=== PATIENT | female | born 1985 | race Hispanic/Latino ===

== ENCOUNTER 2024-08-31 17:02 | Emergency (ER) | payer BC, MEDICAID ==
[~2024-08-31] VITALS: Ht 165.1 cm; Wt 95.3 kg
--- NOTE | 2024-08-31 17:16 | ERN ---
General Chief Complaint: Hyperglycemia Stated Complaint: HIGH BLOOD SUGAR LEVEL 415 Time Seen by MD: 17:04 Source: patient History of Present Illness Initial Comments PATIENT IS A 39-YEAR-OLD FEMALE COMING IN TO BE EVALUATED FOR ELEVATED GLUCOSE. PER PATIENT SHE WAS FEELING WEAK AND PRESENTED WITH A HEADACHE EARLIER TODAY. SHE STATES HE GRABBED HER MOTHER'S GLUCOMETER CHECKED HER GLUCOSE IT WAS IN THE 400. SHE HAS NEVER BEEN DIAGNOSED WITH DIABETES IN HIS HERE FOR FURTHER EVALUATION. Allergies: Coded Allergies: No Known Allergies (Unverified Allergy, Unknown, 06/27/16) Home Meds No Active Prescriptions or Reported Meds Past Medical History Past Medical History: No Pertinent History Past Surgical History: None ROS Dictation CONSTITUTIONAL: NO CHILLS, NO FEVER, WEAKNESS, NO DIAPHORESIS, NO MALAISE. HEAD/FACE: NO SIGNS OF TRAUMA. EENT: NO EYE PAIN, NO BLURRED VISION, NO TEARING, NO DOUBLE VISION, NO EAR PAIN, NO EAR DISCHARGE, NO NOSE PAIN, NO NASAL CONGESTION, NO THROAT PAIN, NO THROAT SWELLING, NO MOUTH PAIN. RESPIRATORY: NO COUGH, NO ORTHOPNEA, NO SOB, NO STRIDOR, NO WHEEZING. CARDIOVASCULAR: NO CHEST PAIN, NO EDEMA, NO PALPITATIONS, NO SYNCOPE. GASTROINTESTINAL/ABDOMINAL: NO ABDOMINAL PAIN, NO CONSTIPATION, NO DIARRHEA, NO NAUSEA, NO VOMITING. GENITOURINARY: NO ABNORMAL DISCHARGE, NO DYSURIA, NO FREQUENT URINATION, NO HEMATURIA. NO COMPLAINTS OF PAIN IN THE GENITALS. MUSCULOSKELETAL: NO BACK PAIN, NO GOUT, NO JOINT PAIN, NO JOINT SWELLING, NO MUSCLE PAIN, NO MUSCLE STIFFNESS, NO NECK PAIN. INTEGUMENTARY: NO CHANGE IN COLOR, NO CHANGE IN HAIR/NAILS, NO DRYNESS, NO LESION, NO LUMPS, NO RASH. NEUROLOGICAL/PSYCH: NO ANXIETY, NOT DEPRESSED, NO EMOTIONAL PROBLEM, NO HEADACHE, NO NUMBNESS, NO PRE-EXISTING DEFICIT, NO HISTORY OF SEIZURES, NO TREMORS, NO WEAKNESS. HEMATOLOGIC/LYMPHATIC: NOT ANEMIC, NO HISTORY OF BLOOD CLOTS, NO APPARENT BLEEDING, NO BRUISING, GLANDS NOT SWOLLEN. ALL SYSTEMS NEGATIVE, EXCEPT NOTED. Results Laboratory and Microbiology Lab and Micro Result Laboratory Tests Test 08/31/24 17:47 08/31/24 17:55 Urine Color LIGHT-YELLOW (YELLOW) Urine Appearance CLEAR (CLEAR) Urine pH 5.5 (5.0-8.0) Urine Specific [place] 1.048 (1.001-1.031) Urine Protein 10 mg/dL (NEGATIVE) H Urine Glucose (UA) >=1000 mg/dL (NEGATIVE) H Urine Ketones 20 mg/dL (NEGATIVE) H Urine Occult Blood +- (TRACE) (NEGATIVE) H Urine Nitrate 2+ (NEGATIVE) H Urine Bilirubin NEGATIVE mg/dL (NEGATIVE) Urine Urobilinogen 0.2 mg/dL (0.2-1.0) Urine Leukocyte Esterase 250 Peyton/uL (NEGATIVE) H Urine RBC 11-25 /HPF (0-1) H Urine WBC 26-50 /HPF (0-1) H Urine Squamous Epithelial Cells MANY /HPF (0-2) Urine Bacteria RARE /HPF (None Seen) Urine Yeast RARE /HPF (None Seen) White Blood Count 6.5 K/uL (4.8-10.8) Red Blood Count 4.97 MIL/uL (4.00-5.50) Hemoglobin 13.8 g/dL (12.0-16.0) Hematocrit 40.5 % (36-48) Mean Corpuscular Volume 81.5 fL (79-99) Mean Corpuscular Hemoglobin 27.8 pg (27.0-33.0) Mean Corpuscular Hemoglobin Concent 34.1 g/dL (32.0-36.0) Red Cell Distribution Width 14.4 % (11.0-15.5) Platelet Count 337 K/uL (130-400) Mean Platelet Volume 10.6 fL (7.5-10.5) H Immature Granulocyte % (Auto) 0.5 % (0-1) Neutrophils (%) (Auto) 57.9 % (40.0-77.0) Lymphocytes (%) (Auto) 31.5 % (21.0-51.0) Monocytes (%) (Auto) 7.5 % (3.0-13.0) Eosinophils (%) (Auto) 1.8 % (0.0-8.0) Basophils (%) (Auto) 0.8 % (0.0-5.0) Neutrophils # (Auto) 3.8 K/uL (1.8-7.7) Lymphocytes # (Auto) 2.1 K/uL (1.0-4.8) Monocytes # (Auto) 0.5 K/uL (0.1-1.0) Eosinophils # (Auto) 0.12 K/uL (0.00-0.70) Basophils # (Auto) 0.05 K/uL (0.00-0.20) Absolute Immature Granulocyte (auto 0.03 K/uL (0-1) Nucleated Red Blood Cells 0.0 % (0.0-0.19) Sodium Level 134 mmol/L (136-145) L Potassium Level 3.4 mmol/L (3.5-5.1) L Chloride Level 96 mmol/L (101-111) L Carbon Dioxide Level 28 mmol/L (21-32) Blood Urea Nitrogen 7 mg/dL (7-18) Creatinine 0.6 mg/dL (0.5-1.0) Glomerular Filtration Rate Calc 116 mL/min (>90) Random Glucose 399 mg/dL (70-105) H Total Calcium 9.3 mg/dL (8.5-10.1) Labs Reviewed?: Yes MDM MDM: DIFFERENTIAL DIAGNOSIS: DIABETES MELLITUS HYPERGLYCEMIA, UTI, NONCOMPLIANCE, RATIONALE: TESTS CONSIDERED AND ORDERED SECONDARY TO SHARED DECISION MAKING INCLUDE: PREVIOUS OUTSIDE RECORDS REVIEWED: OLD ER VISITS. RISK OF COMPLICATION AND/OR MORBIDITY OR MORTALITY OF PATIENT MANAGEMENT: NONE MEDICATIONS-PER MEDICATION RECONCILIATION NEED FOR HOSPITALIZATION: PATIENT DOES NOT MEET CRITERIA FOR HOSPITALIZATION. PATIENT IS A 39-YEAR-OLD FEMALE COMING IN TO BE EVALUATED AFTER SHE STATES HE CHECKED HIS BLOOD GLUCOSE AND IT WAS HIGH. SHE PATIENT HAS NOT BEEN DIAGNOSED WITH DIABETES BUT HAS NOT FOLLOWED UP WITH THE PCP IN SOME TIME. LABORATORY WORKUP DID DISCLOSE ELEVATED GLUCOSE WELL A URINARY TRACT INFECTION. PATIENT WAS HYDRATED WITH IV FLUIDS INSULIN WAS GIVEN. ANTIBIOTICS WERE ALSO GIVEN FOR THE URINARY TRACT INFECTION. PATIENT WILL BE DISCHARGED WITH ORAL AN TI GLYCEMIC ACHES WELL ANTIBIOTICS. I DID ADVISED HER APPROPRIATE FOLLOW UP WITH PCP FOR LONG-TERM MANAGEMENT OF DIABETES MELLITUS. ED Course Orders Procedure Category Date Status Time Cbc With Differential LAB 08/31/24 Complete 17:08 Basic Metabolic Panel LAB 08/31/24 Complete 17:08 Urinalysis LAB 08/31/24 Complete W/Microscopic 17:08 12 Lead Ekg Tracing- EKG 08/31/24 Resulted Technical 17:08 0.9%Nacl 1000ml (Ns PHA 08/31/24 Complete 1000ml) 17:30 Culture Urine MAIRA 08/31/24 In Process 18:17 0.9%Nacl 1000ml (Ns PHA 08/31/24 Complete 1000ml) 18:30 Ceftriaxone 1g Vial PHA 08/31/24 Complete (Rocephine 1g Inj) 18:30 Potassium Bicarb/Cit PHA 08/31/24 Complete Ac 25meq (K-Lyte Ta 18:30 Insulin Regular, PHA 08/31/24 Complete Human 3ml (Humulin R 18:30 Current Medications Medications (Trade) Dose Ordered Sig/Diana Route PRN Reason Start Time Stop Time Status Last Admin Dose Admin Ceftriaxone Sodium (ROCEphine 1G INJ) 1 gm ONCE ONCE IVPB 08/31/24 18:30 08/31/24 18:31 DC 08/31/24 18:31 Insulin Human Regular (humuLIN R 100 UNIT/ML 3ML) 5 unit ONCE ONCE IV 08/31/24 18:30 08/31/24 18:31 DC 08/31/24 18:33 Potassium Bicarbonate (K-Lyte Tablet Eff 25 Meq Tablet.eff) 50 meq ONCE ONCE PO 08/31/24 18:30 08/31/24 18:31 DC 08/31/24 18:31 Sodium Chloride 1,000 ml @ 0 mls/hr ONCE ONCE IV 08/31/24 17:30 08/31/24 17:31 DC 08/31/24 17:59 Sodium Chloride 1,000 ml @ 0 mls/hr ONCE ONCE IV 08/31/24 18:30 08/31/24 18:31 DC 08/31/24 18:31 Vital Signs Date Time Temp Pulse Resp B/P (MAP) Pulse Ox O2 Delivery O2 Flow Rate FiO2 08/31/24 17:55 98.2 88 16 170/96 98 Room Air* 0 21 08/31/24 17:09 98.2 88 20 172/101 99 Room Air DX & DISP Disposition: Discharge Departure Impression: Primary Impression: UTI (urinary tract infection) Additional Impression: Diabetes mellitus with hyperglycemia Condition: Stable Scripts Cephalexin Monohydrate (Keflex) 500 Mg Cap 1 CAP PO TID for 10 Days, #30 CAP 0 Refills Prov: LUIS MANUEL WANG MD 08/31/24 Metformin HCl (Metformin HCl ER) 1,000 Mg [id number] 1 TAB PO BID for diabetes for 30 Days, #60 TAB 0 Refills Prov: LUIS MANUEL WANG MD 08/31/24 Additional Instructions: FOLLOW-UP WITH PRIMARY CARE PROVIDER IN 1 TO 2 DAYS. TAKE MEDICATIONS DIRECTED HERE IN THE EMERGENCY ROOM. OKAY TO CONTINUE HOME MEDICATIONS UNLESS OTHERWISE DISCUSSED DURING YOUR VISIT IN THE EMERGENCY ROOM TODAY. RETURN TO YOUR NEAREST EMERGENCY ROOM IF SYMPTOMS WORSEN OR IF THERE IS NO IMPROVEMENT. CALL 911 IF YOU NEED IMMEDIATE ASSISTANCE. TAKE TYLENOL [id number] NEEDED AND IF NO CONTRAINDICATIONS ARE PRESENT. INCREASE ORAL HYDRATION. A WOUND CULTURE OR URINE CULTURE WAS ORDERED HERE IN THE EMERGENCY ROOM DEPARTMENT PLEASE FOLLOW-UP WITH PRIMARY CARE PROVIDER AND ADVISE THEM TO GET REPORTS FROM OUR FACILITY. IF YOU HAD ANY AIDEE WRAP/SPLINTS THAT WERE APPLIED HERE, PLEASE DO NOT REMOVE THEM UNTIL YOU SEE YOUR PRIMARY CARE OR SPECIALTY. REFERRALS: Referrals: MILTON SHAH MD (PCP) DARYN ARORA MD Time of Disposition: 18:37 LUIS MANUEL WANG MD Aug 31, 2024 17:16
--- NOTE | 2024-08-31 17:19 | EKG ---
[facility] Test Date: 2024-08-31 Test Time: 17:15:36 Pat Name: EARL MOCTEZUMA Department: ED Room: Gender: F Cloth Bale Header: [id number] : 1985 Requested By: LUIS MANUEL WANG Order Number: [id number] Reading MD: Reza Carnes Measurements Intervals [place] Rate: 76 P: 22 KS: 168 QRS: 15 QRSD: 88 T: -12 QT: 362 QTc: 407 Interpretive Statements Sinus rhythm Nonspecific T abnormalities, anterior leads No previous ECG available for comparison Electronically Signed On 08-31-2024 18:18:27 CDT by Reza Carnes Please click the below link to view image of tracing.
[2024-08-31] MEDS: 0.9%NACL 1000ML 1,000 ML IV ONE ×2 (17:59→18:31)
[2024-08-31 18:03] LABS: BASOPHILS # (AUTO) 0.05 K/uL (0.00-0.20); BASOPHILS % (AUTO) 0.8 % (0.0-5.0); EOSINOPHILS # (AUTO) 0.12 K/uL (0.00-0.70); EOSINOPHILS % (AUTO) 1.8 % (0.0-8.0); HEMATOCRIT 40.5 % (36-48); IMMATURE GRANULOCYTE ABSOLUTE 0.03 K/uL (0-1); LYMPHOCYTES # (AUTO) 2.1 K/uL (1.0-4.8); LYMPHOCYTES % (AUTO) 31.5 % (21.0-51.0); MEAN CORPUSCULAR HEMOGLOBIN 27.8 pg (27.0-33.0); MEAN CORPUSCULAR HGB CONC 34.1 g/dL (32.0-36.0); MEAN CORPUSCULAR VOLUME 81.5 fL (79-99); MONOCYTES # (AUTO) 0.5 K/uL (0.1-1.0); MONOCYTES % (AUTO) 7.5 % (3.0-13.0); NEUTROPHILS # (AUTO) 3.8 K/uL (1.8-7.7); NEUTROPHILS % (AUTO) 57.9 % (40.0-77.0); PLATELET COUNT (AUTO) 337 K/uL (130-400); RED BLOOD CELL COUNT(AUTO) 4.97 MIL/uL (4.00-5.50); RED CELL DISTRIBUTION WIDTH 14.4 % (11.0-15.5); WHITE BLOOD COUNT (AUTO) 6.5 K/uL (4.8-10.8)
[2024-08-31 18:15] LABS: CREATININE 0.6 mg/dL (0.5-1.0); POTASSIUM 3.4 mmol/L (3.5-5.1)
[2024-08-31 18:16] LABS: APPEARANCE,URINE CLEAR (CLEAR); BACTERIA,URINE RARE /HPF (None Seen); BILIRUBIN,URINE NEGATIVE (NEGATIVE); COLOR,URINE LIGHT-YELLOW (YELLOW); GLUCOSE, URINE (UA) >=1000 mg/dL (NEGATIVE); KETONES,URINE 20 mg/dL (NEGATIVE); LEUKOCYTE ESTERASE ,URINE 250 Leu/uL (NEGATIVE); NITRATE,URINE 2+ (NEGATIVE); PH,URINE 5.5 (5.0-8.0); PROTEIN,URINE 10 mg/dL (NEGATIVE); SQUAMOUS EPITHELIAL CELL,UR MANY /HPF (0-2); UROBILINOGEN,URINE 0.2 mg/dL (0.2-1.0); WBC,URINE 26-50 /HPF (0-1); YEAST,URINE BUDDING RARE /HPF (None Seen)
[2024-08-31] MEDS: cefTRIAXone 1G VIAL IVPB ONE (18:31)
[2024-08-31] MEDS: PoTASSium BIcarbonate/CIT AC 25 MEQ TABLET.EFF PO ONE (18:31)
[2024-08-31] MEDS: INSULIN humuLIN R 100 UNIT/ML 3ML IV ONE (18:33)
[2024-08-31] MEDS ORDERED: CEPH500B PO (18:38)
[2024-08-31] MEDS ORDERED: METF-1151 PO (18:38)
[2024-08-31 19:09] VITALS: BP 165/92; PULSE 80; RESP 16; TEMP 98.3; O2SAT 98
== END 2024-08-31 19:22 | disposition home or self-care (01) ==
LOC: EDH 17:02
DX: E11.65 Type 2 diabetes mellitus with hyperglycemia (principal); N39.0 Urinary tract infection, site not specified
CPT/HCPCS: 99284; 96365; 96375; 80048; 85025; 87086 ×2; 87186; 82948; 81001; 36415; 93005; J1815; J7030; J0696